=== PATIENT | male | born 1995 | race Caucasian/White ===

== ENCOUNTER 2018-01-11 08:10 | Emergency (ER) | payer BC, OTHER ==
[2018-01-11 08:31] VITALS: BP 144/76
--- NOTE | 2018-01-11 08:46 | ED ---
Respiratory - HPI Summary HPI Summary: 22 yr old male with the complaints of runny nose, coughing, SOB, pain with coughing. Sputum that is brown in color. He has been coughing for about almost three weeks. His first symptoms were runny nose, and sore throat. Denies history of asthma. - History of Current Complaint Chief Complaint: UCRespiratory Stated Complaint: COUGH,CONGESTION Time Seen by Provider: 01/11/18 08:30 Pain Intensity: 7 - Allergy/Home Medications Allergies/Adverse Reactions: Allergies Allergy/AdvReac Type Severity Reaction Status Date / Time No Known Allergies Allergy Verified 01/11/18 08:26 Home Medications: Home Medications Dm/PE/Acetaminophen/Doxylamine [Daytime-Nighttime Cold-Flu] 2 each PO BID PRN [History Confirmed 01/11/18] PMH/Surg Hx/FS Hx/Imm Hx Infectious Disease History: No Infectious Disease History: Denies: Traveled Outside the [place] in Last 30 Days - Family History Known Family History: Positive: None - Social History Alcohol Use: None Substance Use Type: Reports: None Smoking Status (MU): Former Smoker Review of Systems Constitutional: Negative Positive: Sore Throat, Nasal Discharge Positive: Shortness Of Breath, Cough All Other Systems Reviewed And Are Negative: Yes Physical Exam Triage Information Reviewed: Yes Vital Signs On Initial Exam: Initial Vitals Temp Pulse Resp BP Pulse Ox 97.2 F 78 14 144/76 97 01/11/18 08:27 01/11/18 08:27 01/11/18 08:27 01/11/18 08:27 01/11/18 08:27 Vital Signs Reviewed: Yes Appearance: Positive: Well-Appearing, No Pain Distress Skin: Positive: Warm, Skin Color Reflects Adequate Perfusion Head/Face: Positive: Normal Head/Face Inspection Eyes: Positive: EOMI ENT: Positive: Pharynx normal, Nasal congestion, TMs normal. Negative: Muffled voice, Hoarse voice Neck: Positive: Nontender Respiratory/Lung Sounds: Positive: Clear to Auscultation, Breath Sounds Present Cardiovascular: Positive: RRR. Negative: Murmur Abdomen Description: Positive: Nontender Musculoskeletal: Positive: Strength/ROM Intact Neurological: Positive: Sensory/Motor Intact, Alert, Oriented to Person Place, Time, CN Intact II-III Psychiatric: Positive: Normal - [place] Coma Scale Best Eye Response: 4 - Spontaneous Best Motor Response: 6 - Obeys Commands Best Verbal Response: 5 - Oriented Coma Scale Total: 15 Diagnostics - Vital Signs Vital Signs Temp Pulse Resp BP Pulse Ox 01/11/18 08:27 97.2 F 78 14 144/76 97 - Laboratory Lab Statement: Any lab studies that have been ordered have been reviewed, and results considered in the medical decision making process. - Radiology PA/Lat chest Radiology Interpretation Completed By: ED Physician - The patient has increased interstitial markings consistent with possible atypical pneumonia, Radiologist - NAD per rad reading. Disposition - Course Course Of Treatment: 22 yr old with NAD on chest xray. WIll DC home. FU with PMD. - Diagnoses Provider Diagnoses: Upper respiratory infection, Hypertension, Atypical pneumonia Discharge - Sign-Out/Discharge Documenting (check all that apply): Patient Departure All imaging exams completed and their final reports reviewed: Yes - Discharge Plan Condition: Good Disposition: HOME Prescriptions: Azithromycin TAB* [Zithromax TAB (Z-JERAD) 250 mg #6 tabs] 2 tab PO .TODAY, THEN 1 DAILY #1 jerad Patient Education Materials: Upper Respiratory Infection (DC), Hypertension (ED ), Bacterial Pneumonia (ED) Referrals: No Primary Care Phys,NOPCP [Primary Care Provider] - [facility] [place] [facility] [Outside] - 2 Days - Billing Disposition and Condition Condition: GOOD Disposition: Home
== END 2018-01-11 09:40 | disposition home or self-care (01) ==
LOC: UCCORT 08:10
DX: J18.9 Pneumonia, unspecified organism (principal); Z87.891 Personal history of nicotine dependence; J06.9 Acute upper respiratory infection, unspecified; I10 Essential (primary) hypertension
CPT/HCPCS: 71046; 99202; G0463